=== PATIENT | female | born 1995 | race Caucasian/White ===

== ENCOUNTER 2020-04-21 06:57 | Emergency (ER) | payer OTHER ==
[~2020-04-21] VITALS: Ht 167.6 cm; Wt 64.0 kg
[2020-04-21] MEDS ORDERED: ONDANSETRON HCL 4MG/2ML INJ IV STA (07:18)
[2020-04-21] MEDS ORDERED: SODIUM CHLORIDE 0.9% 1,000 ML IV ONE (07:18)
[2020-04-21] MEDS ORDERED: DICYCLOMINE 10 MG/5 ML ORAL SYR PO ONE (07:30)
[2020-04-21] MEDS ORDERED: MAGNESIUM/ALUMINUM HYDROXIDE/SIMETHICONE 30ML UDC PO ONE (07:30)
[2020-04-21 07:34] LABS: CLARITY URINE CLOUDY (CLEAR); COLOR URINE YELLOW (YELLOW); KETONES URINE NEGATIVE (NEGATIVE); LEUKOCYTE ESTERASE URINE TRACE (NEGATIVE); NITRITE URINE NEGATIVE (NEGATIVE); OCCULT BLOOD URINE NEGATIVE (NEGATIVE); PH URINE 6.5 (4.5-8.0); PROTEIN URINE NEGATIVE (NEGATIVE); SPECIFIC GRAVITY URINE 1.014 (1.005-1.030); UROBILINOGEN URINE 0.2 E.U./dL (0.2-1.0)
[2020-04-21 07:57] LABS: BASOPHILS % 0.5 % (0.0-2.0); EOSINOPHILS % 0.5 % (0.0-5.0); HEMATOCRIT. 43.7 % (36.0-48.0); HEMOGLOBIN. 14.8 g/dL (12.0-16.0); LYMPHOCYTES % 10.1 % (20.0-50.0); MEAN CORPUSCULAR HEMOGLOBIN 29.5 pg (28.0-32.0); MEAN CORPUSCULAR VOLUME 87.2 fL (81.0-99.0); MEAN PLATELET VOLUME 8.6 fl (7.4-10.4); MONOCYTES % 6.1 % (2.0-8.0); NEUTROPHILS % 82.8 % (40.0-76.0); PLATELET 282 x1000/uL (130-400); RED BLOOD CELL COUNT 5.01 mill/uL (4.2-5.4); RED CELL DISTRIBUTION WIDTH 12.2 % (11.6-14.6)
[2020-04-21 07:59] LABS: CHLORIDE 105 mEq/L (98-107)
[2020-04-21 09:05] VITALS: BP 102/52
== END 2020-04-21 09:06 | disposition home or self-care (01) ==
LOC: ER 06:57
DX: R07.89 Other chest pain (principal); R11.2 Nausea with vomiting, unspecified; R55 Syncope and collapse; R10.33 Periumbilical pain
CPT/HCPCS: 36415; 71045; 80053; 81003; 81025; 83690; 85025; 93005; 96361; 96374; 99285; J2405; J7030